=== PATIENT | male | born 2005 | race Caucasian/White ===

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

== ENCOUNTER → 2023-02-24 | Outpatient (CLI) | payer OTHER | LOC: M PLAIMG 11:55 | PROVIDERS: ATTEND Family Medicine | DX: M79.672 Pain in left foot (principal); M79.671 Pain in right foot ==